=== PATIENT | female | born 1985 | race Caucasian/White ===

== ENCOUNTER 2024-04-10 09:58 | Emergency (ER) | payer BC ==
[2024-04-10] MEDS: Diphtheria,Pertussis(Acell),Tetanus Vaccine 0.5 ML Syringe IM ONE (10:24)
== END 2024-04-10 10:34 | disposition home or self-care (01) ==
LOC: MW.ED 09:58
DX: S00.511A Abrasion of lip, initial encounter (principal); Z79.899 Other long term (current) drug therapy; Z23 Encounter for immunization; W01.190A Fall on same level from slipping, tripping and stumbling with subsequent striking against furniture, initial encounter
CPT/HCPCS: 90471; 90715; 99283; 99283-25